=== PATIENT | male | born 1985 ===

== ENCOUNTER 2017-05-11 11:58 | Emergency (ER) | payer MEDICAID ==
[2017-05-11 12:06] VITALS: BP 130/70; TEMP 98.6; O2SAT 98
--- NOTE | 2017-05-11 12:25 | C.PDOC ---
History Of Present Illness 31 y/o male presents to ED for evaluation of non-radiating right lower back pain after lifting heavy boxes at work 1 hour ago. Patient reports having similar symptoms in the past, and states it feels like aback spasm. Patient did not try taking any medication for pain. He denies dysuria/hematuria, abdominal pain, nausea, vomiting, fever, urinary retention, bowel/bladder incontinence, sensory changes. Time Seen by Provider: 05/11/17 12:06 Chief Complaint (Nursing): Back Pain History Per: Patient History/Exam Limitations: no limitations Onset/Duration Of Symptoms: Hrs (1) Current Symptoms Are (Timing): Still Present Quality Of Discomfort: "Pain" Severity: Mild Previous Symptoms: Back Pain Associated Symptoms: None. denies: Incontinence, New Weakness, New Numbness Exacerbating Factor(s): Nothing Additional History Per: Patient Past Medical History Reviewed: Historical Data, Nursing Documentation, Vital Signs Vital Signs: Last Vital Signs Temp 98.6 F 05/11/17 12:02 Pulse 71 05/11/17 12:51 Resp 18 05/11/17 12:51 BP 130/70 05/11/17 12:02 Pulse Ox 98 05/11/17 14:00 - Medical History PMH: No Chronic Diseases Family History: States: No Known Family Hx - Social History Hx Alcohol Use: No Hx Substance Use: No - Immunization History Hx Tetanus Toxoid Vaccination: No Hx Influenza Vaccination: Yes Hx Pneumococcal Vaccination: No Review Of Systems Except As Marked, All Systems Reviewed And Found Negative. Constitutional: Negative for: Fever, Chills Cardiovascular: Negative for: Chest Pain, Palpitations Respiratory: Negative for: Cough, Shortness of Breath Gastrointestinal: Negative for: Nausea, Vomiting, Abdominal Pain, Diarrhea Genitourinary: Negative for: Dysuria, Frequency, Hematuria Musculoskeletal: Positive for: Back Pain Neurological: Negative for: Weakness, Numbness Physical Exam - Physical Exam Appears: Well, Non-toxic, No Acute Distress Skin: Normal Color, Warm, Dry Head: Normacephalic Eye(s): bilateral: Normal Inspection Oral Mucosa: Moist Cardiovascular: Rhythm Regular Respiratory: Normal Breath Sounds, No Accessory Muscle Use, No Rales, No Rhonchi , No Wheezing Gastrointestinal/Abdominal: Normal Exam, Bowel Sounds, Soft, No Tenderness Back: No CVA Tenderness, No Vertebral Tenderness, Muscle Spasm (L3-L5), Paraspinal Tenderness (right lumbar paraspinal tenderness with palpable muscle spasm) Extremity: Normal ROM, No Deformity Extremity: Bilateral: Atraumatic Neurological/Psych: Oriented x3 ED Course And Treatment O2 Sat by Pulse Oximetry: 98 (on RA) Pulse Ox Interpretation: Normal Progress Note: Patient was given PO Flexeril and Toradol IM. Reevaluation Time: 12:40 Reassessment Condition: Improved (Patient reassessed, pain has improved. Patient ambulating normally in the ED. Rxs given for Naprosyn and Flexeril, and instructed to follow up with PMD/clinic in 1-2 days. He understands he should return to ED if symptoms worsen.) Disposition Counseled Patient/Family Regarding: Diagnosis, Need For Followup, Rx Given - Disposition Referrals: Wali Moran MD [Non-Staff] - Disposition: HOME/ ROUTINE Disposition Time: 12:40 Condition: STABLE Prescriptions: Cyclobenzaprine [Cyclobenzaprine HCl] 10 mg PO BID PRN #15 tab PRN Reason: Muscle Spasm Naproxen [Naprosyn Tab] 375 mg PO BID PRN #20 tab PRN Reason: pain Instructions: Muscle Spasm (ED) Print Language: JAPANESE - POA Present On Arrival: None - Clinical Impression Clinical Impression: Low back pain, Muscle spasm - Scribe Statement The provider has reviewed the documentation as recorded by the Bella Vasquez All medical record entries made by the Bella were at my direction and personally dictated by me. I have reviewed the chart and agree that the record accurately reflects my personal performance of the history, physical exam, medical decision making, and the department course for this patient. I have also personally directed, reviewed, and agree with the discharge instructions and disposition.
[2017-05-11 12:51] VITALS: PULSE 71; RESP 18
== END 2017-05-11 12:53 | disposition home or self-care (01) ==
LOC: C.ER 11:58
DX: M54.5 Low back pain (principal); M62.838 Other muscle spasm
CPT/HCPCS: 96372; 99283; J1885

== ENCOUNTER 2018-09-13 15:34 | Emergency (ER) | payer MEDICAID ==
[2018-09-13 15:52] VITALS: BP 123/79; PULSE 77; RESP 18; TEMP 98.8; O2SAT 96; BMI 29.9
[2018-09-13] MEDS ORDERED: Lidocaine Hydrochloride 5 ML INJ ONE (16:33)
--- NOTE | 2018-09-13 16:40 | C.PDOC ---
History Of Present Illness 33 year old male presents to the ED for evaluation after his tongue accidentally became hooked onto his braces just prior to arrival. Patient tried to unhook , but was unable to and presents to the ED for further evaluation. He denies trauma. Time Seen by Provider: 09/13/18 16:27 Chief Complaint (Nursing): Dental Pain History Per: Patient History/Exam Limitations: no limitations Onset/Duration Of Symptoms: Hrs Current Symptoms Are (Timing): Still Present Quality: Positive for: "Pain" Additional History Per: Patient Past Medical History Reviewed: Historical Data, Nursing Documentation, Vital Signs Vital Signs: Last Vital Signs Temp 98.8 F 09/13/18 15:52 Pulse 77 09/13/18 15:52 Resp 18 09/13/18 15:52 BP 123/79 09/13/18 15:52 Pulse Ox 96 09/13/18 15:52 - Medical History PMH: No Chronic Diseases Surgical History: No Surg Hx Family History: States: Unknown Family Hx - Social History Hx Alcohol Use: No Hx Substance Use: No - Immunization History Hx Tetanus Toxoid Vaccination: No Hx Influenza Vaccination: Yes Hx Pneumococcal Vaccination: No Review Of Systems ENT: Positive for: Mouth Pain (tongue hooked onto metal braces ). Negative for: Other (trauma ) Physical Exam - Physical Exam Appears: Non-toxic, No Acute Distress Skin: Normal Color, Warm, Dry Head: Atraumatic, Normacephalic Eye(s): bilateral: Normal Inspection, EOMI Nose: Normal Oral Mucosa: Moist Tongue: Other (inferior aspect of left tongue is punctured on braket hook on left lateral incisor. no active bleeding ) Lips: Normal Appearing Gingiva: Normal Appearing Throat: Normal Neck: Normal ROM, Supple Chest: Symmetrical Respiratory: No Accessory Muscle Use Neurological/Psych: Oriented x3 ED Course And Treatment O2 Sat by Pulse Oximetry: 96 (on RA) Pulse Ox Interpretation: Normal Progress Note: 0.25cc of lidocaine administered to the effected area. Tweezers were used to successfully unhook the tongue from the bracket hook. Patient reports immediate relief. Small puncture wound noted on tongue with no active bleeding. Discussed signs of concern for wound infection and insturcted to follow up with the store product demonstrator in 1-2 days. On reassessment, patient is resting comfortably, showing no signs of distress and reports an improvement in his symptoms. I discussed wound care with the patient. Patient is discharged with Rx for antibiotics, which he is instructed to full if any erythema or swelling develops. Patient adivsed to f/u with his PMD within 1-2 days for further evaluation. Disposition - Disposition Disposition: HOME/ ROUTINE Disposition Time: 16:40 Condition: STABLE Additional Instructions: Follow up with the orthodonist in 1-2 days. Return to ER if symptoms persist or worsen. Prescriptions: Clindamycin [Cleocin] 300 mg PO Q6 #28 cap Instructions: Wound Care (DC) Forms: [employer] (Uzbek) - Clinical Impression Clinical Impression: Puncture wound of tongue - PA / PRODUCTION ASSEMBLY SUPERVISOR / Resident Statement MD/DO has reviewed & agrees with the documentation as recorded. - Scribe Statement The provider has reviewed the documentation as recorded by the Scribe (Azra Vasquez) All medical record entries made by the Scribe were at my direction and personally dictated by me. I have reviewed the chart and agree that the record accurately reflects my personal performance of the history, physical exam, medical decision making, and the department course for this patient. I have also personally directed, reviewed, and agree with the discharge instructions and disposition.
== END 2018-09-13 16:53 | disposition home or self-care (01) ==
LOC: C.ER 15:34
DX: S01.532A Puncture wound without foreign body of oral cavity, initial encounter (principal); X58.XXXA Exposure to other specified factors, initial encounter